=== PATIENT | female | born 1955 | race Caucasian/White ===

== ENCOUNTER → 2017-01-14 | Outpatient (CLI) | payer OTHER ==
--- NOTE | 2017-01-16 10:37 | MG ---
Examination: Bilateral screening mammogram. Clinical history: Routine screening. Technique: Digital CC and MLO views of both breasts were obtained. Computer aided detection analysis was performed and used during the interpretation. Comparison: 01/11/2016. Findings: The breasts are heterogeneously dense, reducing the sensitivity of mammography. Benign-appearing calc ifications are noted in the breasts bilaterally. A stable benign-appearing density is present in the upper outer aspect of the right breast. A skin mole is seen overlying the left breast. There is a new density present in the superior portion of the right breast in the posterior depth, se en on the MLO view only. Additional imaging evaluation is recommended, with a spot compression magnif ication view in the MLO projection, an exaggerated CC view and a lateral view of the right breast, as well as a right breast ultrasound. No suspicious mass, area of architectural distortion or suspicious cluster of microcalcifications is noted in the left breast. Impression: 1. New density in the right breast, as described above. BI-RADS category 0 (ZERO) - ASSESSMENT INCOMPLETE; ADDITIONAL IMAGING IS NEEDED. Recommend immediate recall for additional imaging evaluation, as described above. Diagnostic CAD was utilized and reviewed. * 0 (ZERO) - ASSESSMENT INCOMPLETE; ADDITIONAL IMAGING IS NEEDED. * 0C - ASSESSMENT INCOMPLETE, NEEDS ADDITIONAL IMAGING EVALUATION AND/OR PRIOR MAMMOGRAMS FOR COMPARI SON. * 1/1 (ONE) - NEGATIVE. * 2/II (TWO) - BENIGN FINDINGS. * 3/III (THREE) - PROBABLY BENIGN FINDING; SHORT INTERVAL FOLLOW-UP SUGGESTED. * 4/IV (FOUR) - SUSPICIOUS ABNORMALITY; BIOPSY SHOULD BE CONSIDERED. * 5/V - HIGHLY SUSPICIOUS OF MALIGNANCY; BIOPSY SHOULD BE PERFORMED. * 6/IV - KNOWN BIOPSY PROVEN MALIGNANCY-APPROPRIATE ACTION SHOULD BE TAKEN. A NEGATIVE X-RAY REPORT SHOULD NOT DELAY BIOPSY IF A DOMINANT OR CLINICALLY SUSPICIOUS MASS IS PRESENT; 4 TO 8 PERCENT OF CANCERS ARE NOT IDENTIFIED BY X-RAY. A NEGATIVE REPORT MAY REINFORCE THE CLINICAL IMPRESSION. ADENOSIS AND DENSE BREASTS MAY OBSCURE AN UNDERLYING NEOPLASM. Reported By:
== END | disposition home or self-care (01) | DRG 951 ==
LOC: RAD 14:31
PROVIDERS: ATTEND Obstetrics & Gynecology
DX: Z12.31 Encounter for screening mammogram for malignant neoplasm of breast (principal)
CPT/HCPCS: 77067

== ENCOUNTER → 2017-01-24 | Outpatient (CLI) | payer OTHER ==
--- NOTE | 2017-01-24 20:04 | MG ---
Examination: Unilateral right diagnostic mammogram and right breast ultrasound. Clinical history: Abnormal screening mammogram. Technique: Additional digital images of the right breast were obtained. Targeted right breast ultraso und was also obtained evaluating the superior portion of the right breast Comparison: 01/14/2017, 01/11/2016. Findings: The right breast is heterogeneously dense, reducing the sensitivity of mammography. Benign-appearing calcifications are noted in the right breast. There is a stable small 8 mm rounded density present at approximately the 3 o'clock position in the r ight breast in the posterior depth. There is an additional persistent small approximately 7 mm oval density, which is partially obscured by surrounding fibroglandular tissue and is seen in the upper outer aspect of the right breast in the posterior depth. Targeted right breast ultrasound evaluating the superior portion of the right breast reveals a 6 mm c ircumscribed cystic mass with internal echoes measuring approximately 6 x 7 mm in size seen at the 11 o'clock position approximately 6 cm from the nipple, which appears to correlate with findings on the mammogram and probably represents a complicated benign cyst. A follow-up right diagnostic mammogram and right breast ultrasound is recommended in 6 months to ensure stability of this finding. There are multiple additional small benign cysts present at the 1 o'clock, 2 o'clock and 3 o'clock positions i n the right breast, with scattered areas of mild ductal ectasia also noted. There is a 3 x 5 mm cysti c area with internal septations seen at the 4 o'clock position, approximately 6 cm from the nipple, w hich could represent a small cluster of cysts or a convoluted area of ductal ectasia. A follow-up rig ht diagnostic mammogram and right breast ultrasound is recommended in 6 months to ensure stability of this finding. Impression: 1. Probably benign findings in the right breast, as described above. BI-RADS category 3/III (THREE) - PROBABLY BENIGN FINDING; SHORT INTERVAL FOLLOW-UP SUGGESTED. Recommend a follow-up right diagnostic mammogram and right breast ultrasound in [address] ability of the findings in the right breast. Diagnostic CAD was utilized and reviewed. * 0 (ZERO) - ASSESSMENT INCOMPLETE; ADDITIONAL IMAGING IS NEEDED. * 0C - ASSESSMENT INCOMPLETE, NEEDS ADDITIONAL IMAGING EVALUATION AND/OR PRIOR MAMMOGRAMS FOR COMPARI SON. * 1/1 (ONE) - NEGATIVE. * 2/II (TWO) - BENIGN FINDINGS. * 3/III (THREE) - PROBABLY BENIGN FINDING; SHORT INTERVAL FOLLOW-UP SUGGESTED. * 4/IV (FOUR) - SUSPICIOUS ABNORMALITY; BIOPSY SHOULD BE CONSIDERED. * 5/V - HIGHLY SUSPICIOUS OF MALIGNANCY; BIOPSY SHOULD BE PERFORMED. * 6/IV - KNOWN BIOPSY PROVEN MALIGNANCY-APPROPRIATE ACTION SHOULD BE TAKEN. A NEGATIVE X-RAY REPORT SHOULD NOT DELAY BIOPSY IF A DOMINANT OR CLINICALLY SUSPICIOUS MASS IS PRESENT; 4 TO 8 PERCENT OF CANCERS ARE NOT IDENTIFIED BY X-RAY. A NEGATIVE REPORT MAY REINFORCE THE CLINICAL IMPRESSION. ADENOSIS AND DENSE BREASTS MAY OBSCURE AN UNDERLYING NEOPLASM. Reported By:
== END ==
LOC: RAD 14:30
PROVIDERS: ATTEND Obstetrics & Gynecology
DX: R92.2 Inconclusive mammogram (principal)
CPT/HCPCS: 76642; 77065

== ENCOUNTER → 2017-08-06 | Outpatient (CLI) | payer OTHER ==
--- NOTE | 2017-08-06 14:41 | MG ---
HISTORY: Right breast nodules Comparison: 01/24/2017 and 01/14/2017 Diagnostic right mammogram FINDINGS: CC and MLO projections of the right breast were obtained. Again identified is a stable nodule within the upper outer quadrant of the right breast. Additional smaller nodules are identified as well and are also mammographically stable. Targeted sonography of the right breast demonstrates stable mildly complicated cyst located at the 11 o'clock and 4 o'clock positions. These cysts are smoothly marginat ed and demonstrate increased through transmission. Internal echoes within the cyst likely reflect kerry ris. There is no vascularity or soft tissue nodularity appreciated. A few simple parenchymal cysts ar e noted within the right breast as well. Additionally, there is a similar-appearing mildly complicate d cyst at the 3 o'clock position, containing internal debris and likely septation. This lesion at 3 o 'clock was not definitely present on prior targeted sonography. Given the complexity of the lesion, s hort interval sonographic follow-up is recommended in 6 months. No significant architectural distorti on, mass or clustered microcalcifications can be observed to suggest malignancy. No skin thickening or nipple retraction is appreciated. No pathological lymphadenopathy can be identified. Benign-appe aring calcifications are noted. IMPRESSION: 1. Stable mildly complicated cysts within the right breast as above. However, there has been interva l development of a new complicated cystic lesion at the 3 o'clock position on targeted sonography. Th is complicated cystic lesion appears to contain internal debris as well as a somewhat thickened septa tion. Therefore, short interval sonographic follow-up for this 1 lesion is recommended in 6 months. ACR CATEGORY 3 - probably benign finding; short interval follow-up suggested Targeted sonography of the right breast is recommended in 6 months in order to document stability as a new lesion at the 3 o'clock position. Diagnostic CAD was utilized and reviewed. * 0 (ZERO) - ASSESSMENT INCOMPLETE; ADDITIONAL IMAGING IS NEEDED. * 1/ (ONE) - NEGATIVE. * 2/II (TWO) - BENIGN FINDINGS. * 3/III (THREE) - PROBABLY BENIGN FINDING; SHORT INTERVAL FOLLOW-UP SUGGESTED. * 4/IV (FOUR) - SUSPICIOUS ABNORMALITY; BIOPSY SHOULD BE CONSIDERED. * 5/V - HIGHLY SUSPICIOUS OF MALIGNANCY; BIOPSY SHOULD BE PERFORMED. A NEGATIVE X-RAY REPORT SHOULD NOT DELAY BIOPSY IF A DOMINANT OR CLINICALLY SUSPICIOUS MASS IS PRESENT; 4 TO 8 PERCENT OF CANCERS ARE NOT IDENTIFIED BY X-RAY. A NEGA TIVE REPORT MAY REINFORCE THE CLINICAL IMPRESSION. ADENOSIS AND DENSE BREASTS MAY OBSCURE AN UNDERLY ING NEOPLASM. Reported By:
--- NOTE | 2017-08-06 14:45 | US ---
HISTORY: Complicated cysts within the right breast, six-month follow-up Study: Right breast ultrasound Comparison: 01/24/2017 Technique: Multiple grayscale and color flow images of the right breast were obtained. Findings: Imaging of the right breast demonstrates a stable mildly complicated cyst at the 11 o'clock position, measuring 5 mm x 6 mm. This cyst contains internal debris but no internal vascularity or suspicious wall thickening. There is a stable minimally complicated cyst at the 2 o'clock position as well, jayson uring 2 mm x 4 mm. At the 3 o'clock position of the right breast there has been interval development of a new complicated cystic lesion which appears to contain internal debris as well as a mildly thick ened internal septation. There is increased through transmission and no internal vascularity. The mar gins of this new lesion or partially obscured. Therefore, short interval sonographic follow-up in [address] [facility] is recommended for this 1 lesion. A stable mildly complicated cyst is also identified at the 4 o'clock position and measures 3 mm x 5 mm. This mildly complicated cyst contains internal debris but no internal vascularity. IMPRESSION: 1. Stable, mildly complicated right breast cysts. However, there has been interval development of a n ew complicated cystic lesion at the 3 o'clock position as described above for which short interval so nographic follow-up in 6 months is recommended for this 1 lesion. Please see diagnostic mammogram rep ort as well. Reported By:
== END ==
LOC: RAD 12:23
PROVIDERS: ATTEND Obstetrics & Gynecology
DX: R92.2 Inconclusive mammogram (principal); N60.19 Diffuse cystic mastopathy of unspecified breast
CPT/HCPCS: 76642; 77065